=== PATIENT | male | born 1940 | race Caucasian/White ===

== ENCOUNTER 2017-12-04 16:06 | Outpatient (CLI) | payer MEDICARE, OTHER ==
[2017-12-04 18:37] LABS: THYROID STIMULATING HORMONE 5.93 uIU/mL (0.34-5.60)
[2017-12-04 18:39] LABS: FREE T4 (FREE THYROXINE) 0.64 ng/dL (0.58-1.64)
== END 2017-12-04 16:07 | disposition home or self-care (01) ==
LOC: LAB.R 16:06
PROVIDERS: ATTEND Physician Assistant Medical
DX: E03.9 Hypothyroidism, unspecified (principal)
CPT/HCPCS: 84439; 84443; 84481

== ENCOUNTER 2017-12-13 13:26 | Outpatient (CLI) | payer MEDICARE, OTHER ==
--- NOTE | 2017-12-14 10:24 | Ultrasound Report ---
THYROID ULTRASOUND: 12/13/2017 CLINICAL INDICATION: Hypothyroidism. TECHNIQUE: Real-time scanning was performed with service representative static images obtained. FINDINGS: The right lobe measures 2.8 x 1.6 x 1.1 cm, and the left lobe measures 2.5 x 1.3 x 1.1 cm. The isthmus measures 6 mm. The thyroid demonstrates homogeneous echotexture. No focal nodule is seen. No adenopathy is appreciated. IMPRESSION: NORMAL THYROID ULTRASOUND. TD: 12/14/2017 10:21
== END 2017-12-13 13:27 | disposition home or self-care (01) ==
LOC: DI 13:26
PROVIDERS: ATTEND Physician Assistant Medical
DX: E03.9 Hypothyroidism, unspecified (principal); R01.1 Cardiac murmur, unspecified
CPT/HCPCS: 76536; 93306

== ENCOUNTER 2018-05-31 10:24 | Outpatient (CLI) | payer MEDICARE, OTHER ==
--- NOTE | 2018-05-31 11:00 | XRAY Report ---
Reason: DYSPNEA ON EXERTION,AORTIC STENOSIS,CALCIFIC Procedure Date: 05/31/2018 Accession Number: [id number] / [id number] Procedure: XR - Chest 2 View X-Ray CPT Code: 16255 FULL RESULT: EXAM: CHEST RADIOGRAPHY EXAM DATE: 05/31/2018 10:45 AM. CLINICAL HISTORY: DYSPNEA ON EXERTION,AORTIC STENOSIS,CALCIFIC. COMPARISON: None. TECHNIQUE: 2 views. FINDINGS: Lungs/Pleura: No focal opacities evident. No pleural effusion. No pneumothorax. Normal volumes. Mediastinum: Status post sternotomy. Heart and mediastinal contours are otherwise unremarkable. Other: Mild degenerative change in the spine. IMPRESSION: Clear lungs. No acute findings. RADIA
[2018-05-31 11:39] LABS: BASOPHILS % (AUTO) 0.5 %; EOSINOPHILS # (AUTO) 0.2 10^3/uL (0.0-0.7); EOSINOPHILS % (AUTO) 2.6 %; HGB - HEMOGLOBIN 14.7 g/dL (14.0-18.0); LYMPHOCYTES # (AUTO) 1.1 10^3/uL (1.5-3.5); LYMPHOCYTES % (AUTO) 16.8 %; MEAN CORPUSCULAR HEMOGLOBIN 31.9 pg (27.0-31.0); MEAN CORPUSCULAR HGB CONC 36.2 g/dL (32.0-36.0); MEAN CORPUSCULAR VOLUME 88.1 fL (80.0-94.0); MEAN PLATELET VOLUME 7.8 fL (7.4-11.4); MONOCYTES # (AUTO) 0.6 10^3/uL (0.0-1.0); MONOCYTES % (AUTO) 9.4 %; NEUTROPHILS # (AUTO) 4.5 10^3/uL (1.5-6.6); NEUTROPHILS % (AUTO) 70.7 %; PLT - PLATELET COUNT 139 10^3/uL (130-450); RED CELL DISTRIBUTION WIDTH 13.4 % (12.0-15.0); WHITE BLOOD COUNT 6.4 x10^3/uL (4.8-10.8)
[2018-05-31 11:43] LABS: ALBUMIN 4.7 g/dL (3.2-5.5); ALBUMIN/GLOBULIN RATIO 1.7 (1.0-2.2); BILIRUBIN,TOTAL 1.1 mg/dL (0.2-1.0); CALCIUM 9.1 mg/dL (8.5-10.3); CREATININE 0.9 mg/dL (0.6-1.2); TOTAL PROTEIN 7.4 g/dL (6.7-8.2)
== END 2018-05-31 10:25 | disposition home or self-care (01) ==
LOC: DI 10:24
PROVIDERS: ATTEND Physician Assistant Medical
DX: R06.00 Dyspnea, unspecified (principal); I35.0 Nonrheumatic aortic (valve) stenosis
CPT/HCPCS: 36415; 71046; 80053; 84443; 85025

== ENCOUNTER 2018-06-20 08:00 | Outpatient (CLI) | payer MEDICARE, OTHER ==
[2018-06-20 14:34] LABS: CREATININE 0.8 mg/dL (0.6-1.2)
== END 2018-06-20 08:01 | disposition home or self-care (01) ==
LOC: LAB.R 08:00
PROVIDERS: ATTEND Nurse Practitioner
DX: I35.0 Nonrheumatic aortic (valve) stenosis (principal); Z79.899 Other long term (current) drug therapy
CPT/HCPCS: 82565

== ENCOUNTER 2018-07-19 11:58 | Outpatient (CLI) | payer MEDICARE, OTHER | END 2018-07-19 11:59 | disposition home or self-care (01) | LOC: LAB 11:58 | PROVIDERS: ATTEND Physician Assistant Medical | DX: E03.9 Hypothyroidism, unspecified (principal); Z79.899 Other long term (current) drug therapy | CPT/HCPCS: 36415; 84443 ==

== ENCOUNTER 2018-10-07 18:44 | Outpatient (CLI) | payer MEDICARE, OTHER | END 2018-10-07 18:45 | disposition critical access hospital (66) | LOC: EMS 18:44 | PROVIDERS: ATTEND Surgery | DX: R07.9 Chest pain, unspecified (principal); R42 Dizziness and giddiness | CPT/HCPCS: A0425; A0427 ==

== ENCOUNTER 2018-10-07 18:48 | Emergency (ER) | payer MEDICARE, OTHER ==
--- NOTE | 2018-10-07 19:17 | ED Physician Documentation ---
PD HPI CHEST PAIN - Stated complaint Stated Complaint: CHEST PAIN - Chief complaint Chief Complaint: Cardiac - History obtained from History obtained from: Patient, EMS - History of Present Illness Timing - onset: Today (About 6:15, while sitting developed dull severe left anterior chest pain. He felt out of sorts with it and dizzy and slightly nauseous. He was not sweaty or short of breath with it. He took a nitroglycerin and it resolved. Total time that he was in pain was about 5 minutes. 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 denies: Palpitations Respiratory: denies: Dyspnea, Cough GI: reports: Nausea. denies: Abdominal Pain, Vomiting PD PAST MEDICAL HISTORY - Past Medical History Cardiovascular: Hypertension, Coronary artery disease, Angina, [place], Valve disorder - Past Surgical History Past Surgical History: Yes Cardiovascular: CABG, Valve replacement - Present Medications Home Medications: Ambulatory Orders Medication Instructions Recorded Confirmed Aspirin [Aspirin EC] 81 mg PO DAILY 10/07/18 10/07/18 Atorvastatin Calcium 40 mg PO DAILY 10/07/18 10/07/18 Levothyroxine Sodium [Synthroid] 25 mcg PO DAILY 10/07/18 10/07/18 Lisinopril 2.5 mg PO DAILY 10/07/18 10/07/18 Metoprolol Tartrate [Lopressor] 50 mg PO DAILY 10/07/18 10/07/18 Nitroglycerin [Nitrostat] 0.4 mg PO Q5MIN PRN 10/07/18 10/07/18 - Allergies Allergies/Adverse Reactions: Allergies Allergy/AdvReac Type Severity Reaction Status Date / Time No Known Drug Allergies Allergy Verified 10/07/18 19:01 - Social History Does the pt smoke?: No Smoking Status: Never smoker Does the pt drink ETOH?: No Does the pt have substance abuse?: No PD ED PE NORMAL - Vitals Vital signs reviewed: Yes - General General: Alert and oriented X 3, No acute distress - HEENT HEENT: PERRL, EOMI - Neck Neck: Supple, no meningeal sign, No bony TTP - Cardiac Cardiac: RRR, Other (2 out of 6 systolic decrescendo murmur heard best at the left upper sternal border) - Respiratory Respiratory: No respiratory distress, Clear bilaterally - Abdomen Abdomen: Soft, Non tender - Derm Derm: Normal color, Warm and dry - Extremities Extremities: No edema, No calf tenderness / cord - Neuro Neuro: Alert and oriented X 3, Normal speech - Psych Psych: Normal mood, Normal affect Results - Vitals Vitals: Vital Signs - 24 hr 10/07/18 10/07/18 10/07/18 18:49 18:57 20:07 Temperature 36.5 C Heart Rate 69 61 60 Respiratory 18 14 17 Rate Blood Pressure 135/62 H 135/61 H 106/53 L O2 Saturation 99 96 97 Oxygen O2 Source Room air - EKG (time done) 1851 Rate: Rate (enter#) (62) Rhythm: NSR [place]: Normal Intervals: Normal GA QRS: LVH Ischemia: Non specific changes (He almost has a Wellens phenomenon in V2 and V3 with slightly biphasic T waves but mostly upright in those leads.) Compare to prior EKG: Old EKG unavailable Computer interpretation: Agree with computer - Labs Labs: Laboratory Tests 10/07/18 10/07/18 10/07/18 19:22 19:22 19:22 WBC 5.3 RBC 4.25 L Hgb 13.4 L Hct 36.6 L MCV 86.2 MCH 31.5 H MCHC 36.5 H RDW 13.5 Plt Count 111 L MPV 7.9 Neut # (Auto) 3.1 Lymph # (Auto) 1.4 L Terrell # (Auto) 0.6 Eos # (Auto) 0.1 Baso # (Auto) 0.0 Absolute Nucleated RBC 0.00 Nucleated RBC % 0.0 PT 12.8 H INR 1.1 Sodium 134 L Potassium 3.7 Chloride 99 L Carbon Dioxide 29 Anion Gap 6.0 BUN 15 Creatinine 0.9 Estimated GFR (MDRD) 81 L Glucose 181 H Calcium 8.6 Total Bilirubin 0.6 AST 27 ALT 28 Alkaline Phosphatase 71 Total Creatine Kinase 62 CK-MB (CK-2) Troponin I Total Protein 6.5 L Albumin 4.2 Globulin 2.3 Albumin/Globulin Ratio 1.8 Lipase 37 10/07/18 10/07/18 19:22 21:00 WBC RBC Hgb Hct MCV MCH MCHC RDW Plt Count MPV Neut # (Auto) Lymph # (Auto) Terrell # (Auto) Eos # (Auto) Baso # (Auto) Absolute Nucleated RBC Nucleated RBC % PT INR Sodium Potassium Chloride Carbon Dioxide Anion Gap BUN Creatinine Estimated GFR (MDRD) Glucose Calcium Total Bilirubin AST ALT Alkaline Phosphatase Total Creatine Kinase CK-MB (CK-2) 2.5 Troponin I < 0.04 < 0.04 Total Protein Albumin Globulin Albumin/Globulin Ratio Lipase PD MEDICAL DECISION MAKING - ED course ED course: This is an 78-year-old gentleman with 5 minutes of rest pain earlier today. His EKG is without truly ischemic changes and his biomarkers are negative. Case discussed with the on-call or assistant at the [facility], [place], operated by [facility]. He reviewed his chart, prior to his TAVR he had a clean angiogram. As such he recommends a second troponin and then discharge and outpatient follow-up. Departure - Departure Disposition: 01 Home, Self Care Clinical Impression: Chest pain Qualifiers: Chest pain type: unspecified Qualified Code(s): R07.9 - Chest pain, unspecified Condition: Good Record reviewed to determine appropriate education?: Yes Instructions: ED Chest Pain NonCardiac Comments: Call your or assistant tomorrow to arrange follow-up. I would not do cardiac rehab until he clears you to do so. Return if you develop any other chest pain or comes back.
[2018-10-07 19:32] LABS: BASOPHILS % (AUTO) 0.5 %; EOSINOPHILS # (AUTO) 0.1 10^3/uL (0.0-0.7); EOSINOPHILS % (AUTO) 1.9 %; HGB - HEMOGLOBIN 13.4 g/dL (14.0-18.0); LYMPHOCYTES # (AUTO) 1.4 10^3/uL (1.5-3.5); LYMPHOCYTES % (AUTO) 27.1 %; MEAN CORPUSCULAR HEMOGLOBIN 31.5 pg (27.0-31.0); MEAN CORPUSCULAR HGB CONC 36.5 g/dL (32.0-36.0); MEAN CORPUSCULAR VOLUME 86.2 fL (80.0-94.0); MEAN PLATELET VOLUME 7.9 fL (7.4-11.4); MONOCYTES # (AUTO) 0.6 10^3/uL (0.0-1.0); MONOCYTES % (AUTO) 11.5 %; NEUTROPHILS # (AUTO) 3.1 10^3/uL (1.5-6.6); PLT - PLATELET COUNT 111 10^3/uL (130-450); RED BLOOD COUNT 4.25 10^6/uL (4.70-6.10); RED CELL DISTRIBUTION WIDTH 13.5 % (12.0-15.0); WHITE BLOOD COUNT 5.3 x10^3/uL (4.8-10.8)
[2018-10-07 19:44] LABS: ALBUMIN 4.2 g/dL (3.2-5.5); ALBUMIN/GLOBULIN RATIO 1.8 (1.0-2.2); BILIRUBIN,TOTAL 0.6 mg/dL (0.2-1.0); CALCIUM 8.6 mg/dL (8.5-10.3); CREATININE 0.9 mg/dL (0.6-1.2); TOTAL PROTEIN 6.5 g/dL (6.7-8.2)
[2018-10-07 19:50] LABS: TROPONIN I < 0.04 ng/mL (<0.49)
[2018-10-07 19:51] LABS: INR 1.1 (0.8-1.2); PT - PROTHROMBIN TIME 12.8 secs (9.9-12.6)
[2018-10-07 19:52] LABS: CREATINE KINASE MB 2.5 ng/mL (0.6-6.3)
--- NOTE | 2018-10-07 20:07 | XRAY Report ---
Reason: chest pain Procedure Date: 10/07/2018 Accession Number: [id number] / [id number] Procedure: XR - Chest 1 View X-Ray CPT Code: 38265 FULL RESULT: EXAM: CHEST RADIOGRAPHY. EXAM DATE: 10/07/2018 07:42 PM. CLINICAL HISTORY: Chest pain. COMPARISON: CHEST 2 VIEW 05/31/2018 10:37 AM. TECHNIQUE: 1 view. FINDINGS: Lungs/Pleura: No focal opacities evident. No pleural effusion. No pneumothorax. Mediastinum: Previous cardiac surgery with median sternal wires and artificial valve. Other: None. IMPRESSION: 1. Lungs clear. 2. Prior cardiac surgery and valve replacement. RADIA
[2018-10-07 21:35] VITALS: BP 111/82
== END 2018-10-07 21:37 | disposition home or self-care (01) ==
LOC: EDUNIT# → ED 18:48
DX: R07.9 Chest pain, unspecified (principal); I25.2 Old myocardial infarction; I25.10 Atherosclerotic heart disease of native coronary artery without angina pectoris; I10 Essential (primary) hypertension; R94.31 Abnormal electrocardiogram [ECG] [EKG]; Z95.1 Presence of aortocoronary bypass graft; Z95.2 Presence of prosthetic heart valve; Z79.82 Long term (current) use of aspirin
CPT/HCPCS: 36415; 71045; 80053; 82550; 82553; 83690; 84484; 85025; 85610; 93005; 99283

== ENCOUNTER 2019-07-30 14:36 | Outpatient (CLI) | payer MEDICARE, OTHER | END 2019-07-30 14:37 | disposition home or self-care (01) | LOC: DI 14:36 | PROVIDERS: ATTEND Internal Medicine Cardiovascular Disease | DX: I50.9 Heart failure, unspecified (principal); Z95.2 Presence of prosthetic heart valve | CPT/HCPCS: 93306 ==

== ENCOUNTER 2019-07-30 15:47 | Outpatient (CLI) | payer MEDICARE, OTHER | END 2019-07-30 15:48 | disposition home or self-care (01) | LOC: RT 15:47 | PROVIDERS: ATTEND Internal Medicine Cardiovascular Disease | DX: I25.10 Atherosclerotic heart disease of native coronary artery without angina pectoris (principal); Z95.2 Presence of prosthetic heart valve | CPT/HCPCS: 93005; 93306 ==

== ENCOUNTER 2020-03-17 09:53 | Outpatient (CLI) | payer MEDICARE, OTHER ==
[2020-03-17 11:40] LABS: BASOPHILS % (AUTO) 0.6 %; EOSINOPHILS # (AUTO) 0.1 10^3/uL (0.0-0.7); EOSINOPHILS % (AUTO) 1.8 %; HGB - HEMOGLOBIN 14.5 g/dL (14.0-18.0); LYMPHOCYTES # (AUTO) 1.9 10^3/uL (1.5-3.5); LYMPHOCYTES % (AUTO) 30.9 %; MEAN CORPUSCULAR HGB CONC 35.3 g/dL (32.0-36.0); MEAN CORPUSCULAR VOLUME 87.8 fL (80.0-94.0); MEAN PLATELET VOLUME 9.8 fL (7.4-11.4); MONOCYTES # (AUTO) 0.7 10^3/uL (0.0-1.0); MONOCYTES % (AUTO) 10.8 %; NEUTROPHILS # (AUTO) 3.5 10^3/uL (1.5-6.6); NEUTROPHILS % (AUTO) 55.6 %; PLT - PLATELET COUNT 121 10^3/uL (130-450); RED BLOOD COUNT 4.68 10^6/uL (4.70-6.10); RED CELL DISTRIBUTION WIDTH 11.8 % (12.0-15.0); WHITE BLOOD COUNT 6.2 x10^3/uL (4.8-10.8)
[2020-03-17 12:08] LABS: ALBUMIN 4.6 g/dL (3.2-5.5); ALBUMIN/GLOBULIN RATIO 1.6 (1.0-2.2); ALKALINE PHOSPHATASE 61 IU/L (42-121); ALT ALANINE AMINOTRANSFERASE 30 IU/L (10-60); AST ASPARTATE AMINOTRANSFERASE 23 IU/L (10-42); BUN - BLOOD UREA NITROGEN 15 mg/dL (6-20); CALCIUM 9.2 mg/dL (8.5-10.3); CARBON DIOXIDE - CO2 30 mmol/L (21-32); CHLORIDE 101 mmol/L (101-111); CHOL/HDL RATIO 3.8 (<5.0); CHOLESTEROL 134 mg/dL; CREATININE 0.9 mg/dL (0.6-1.2); GLUCOSE 147 mg/dL (70-100); HDL CHOLESTEROL 35 mg/dL; LDL CHOLESTEROL,CALCULATED 60 mg/dL; LDL/HDL RATIO 1.7 (<3.6); SODIUM 138 mmol/L (135-145); TOTAL PROTEIN 7.5 g/dL (6.7-8.2); VLDL CHOLESTEROL 39 mg/dL
[2020-03-17 12:28] LABS: CREATININE,URINE 177.5 mg/dL; MICROALBUM/CREATININE RATIO,UR 6.2 ug/mg (<30.0); MICROALBUMIN,URINE 1.1 mg/dL (0-300.0)
[2020-03-17 12:50] LABS: FREE T4 (FREE THYROXINE) 0.67 ng/dL (0.58-1.64)
[2020-03-17 13:56] LABS: HEMOGLOBIN A1c% 6.9 % (4.27-6.07)
== END 2020-03-17 23:59 | disposition home or self-care (01) ==
LOC: LAB.WCP 09:53
PROVIDERS: ATTEND Family Medicine
DX: E11.9 Type 2 diabetes mellitus without complications (principal); I25.10 Atherosclerotic heart disease of native coronary artery without angina pectoris; E78.2 Mixed hyperlipidemia; E03.9 Hypothyroidism, unspecified; E66.3 Overweight
CPT/HCPCS: 36415; 80053; 80061; 82043; 82570; 83036; 83721; 84439; 84443; 85025

== ENCOUNTER 2020-08-06 12:03 | Outpatient (CLI) | payer MEDICARE, OTHER | END 2020-08-06 12:04 | disposition home or self-care (01) | LOC: LAB 12:03 | PROVIDERS: ATTEND Family Medicine | DX: I10 Essential (primary) hypertension (principal); R73.9 Hyperglycemia, unspecified; D69.6 Thrombocytopenia, unspecified; E78.2 Mixed hyperlipidemia | CPT/HCPCS: 36415; 83036; 84443 ==

== ENCOUNTER 2020-12-05 11:22 | Outpatient (CLI) | payer MEDICARE, OTHER | END 2020-12-05 11:23 | disposition critical access hospital (66) | LOC: EMS 11:22 | DX: M79.602 Pain in left arm (principal); M25.512 Pain in left shoulder; M54.6 Pain in thoracic spine | CPT/HCPCS: A0425; A0429 ==

== ENCOUNTER 2020-12-05 12:00 | Emergency (ER) | payer MEDICARE, OTHER ==
[2020-12-05] MEDS ORDERED: HYDROmorphone 1 MG/ML CARPUJECT IVP STA ×2 (12:36→14:21)
[2020-12-05] MEDS ORDERED: KETOROLAC 30 MG/ML VIAL IVP STA (12:36)
[2020-12-05] MEDS ORDERED: SODIUM CHLORIDE 0.9% 1,000 ML IV STA (12:36)
--- NOTE | 2020-12-05 12:38 | ED Physician Documentation ---
PD HPI BACK PAIN - Stated complaint Stated Complaint: L SHOULDER PX - Chief complaint Chief Complaint: General - History obtained from History obtained from: Patient - History of Present Illness Timing - onset: How many hours ago (1), Today Timing - duration: Hours (1) Timing - details: Abrupt onset, Still present Location: Upper, Left Quality: Pain, Sharp Associated symptoms: No: Fever, Weakness, Numbness Contributing factors: Twisting (Patient states he turned his upper back and noted an onset abruptly of sharp left scapular to thoracic area pain rating to the left shoulder. It hurts with shoulder movement and turning of the upper back. Does not hurt with breathing. No lightheadedness.) Similar symptoms before: Has not had sx before Recently seen: No: Surgery (Had TAVR 3 years ago. No history of aortic problems.) Review of Systems Constitutional: denies: Fever, Chills, Myalgias Nose: denies: Rhinorrhea / runny nose, Congestion Throat: denies: Sore throat Cardiac: denies: Chest pain / pressure, Palpitations Respiratory: denies: Cough GI: denies: Abdominal Pain, Nausea, Vomiting, Diarrhea Skin: denies: Rash, Lesions Neurologic: denies: Focal weakness, Numbness, Altered mental status, Headache Endocrine: denies: Weight loss PD PAST MEDICAL HISTORY - Past Medical History Cardiovascular: Hypertension, Coronary artery disease, Angina, [place], Valve disorder, Other (no history of aortic aneurysms. ) Respiratory: None Neuro: None Endocrine/Autoimmune: None - Past Surgical History Past Surgical History: Yes Cardiovascular: CABG, Valve replacement - Present Medications Home Medications: Ambulatory Orders Medication Instructions Recorded Confirmed Aspirin [Aspirin EC] 81 mg PO DAILY 10/07/18 12/05/20 Atorvastatin Calcium 40 mg PO DAILY 10/07/18 12/05/20 Levothyroxine Sodium [Synthroid] 25 mcg PO DAILY 10/07/18 12/05/20 Metoprolol Tartrate [Lopressor] 50 mg PO DAILY 10/07/18 12/05/20 Nitroglycerin [Nitrostat] 0.4 mg PO Q5MIN PRN 10/07/18 12/05/20 lisinopriL [Lisinopril] 2.5 mg PO DAILY 10/07/18 12/05/20 Naproxen Sodium 275 mg PO BID #15 tablet 12/05/20 Ondansetron Odt [Zofran] 4 mg TL Q6H PRN #10 tablet 12/05/20 oxyCODONE [Roxicodone] 5 mg PO Q4-6H PRN #12 tablet 12/05/20 tiZANidine [Zanaflex] 4 mg PO Q8H PRN #20 tablet 12/05/20 - Allergies Allergies/Adverse Reactions: Allergies Allergy/AdvReac Type Severity Reaction Status Date / Time No Known Drug Allergies Allergy Verified 12/05/20 12:08 - Living Situation Living Situation: reports: With spouse/s.o. Living Arrangement: reports: At home - Social History Does the pt smoke?: No Smoking Status: Never smoker Does the pt drink ETOH?: No Does the pt have substance abuse?: No PD ED PE NORMAL - Vitals Vital signs reviewed: Yes - General General: Alert and oriented X 3, Well developed/nourished, Other (appears in pain, increased with movement left shoulder/shoulder girdle, and with movement upper back/lower neck. No chest pain. ) - HEENT HEENT: Pharynx benign - Neck Neck: Supple, no meningeal sign, No adenopathy - Cardiac Cardiac: RRR, Other (1/6 murmur left chest to neck c/w aortic valve stenosis/mild. ) - Respiratory Respiratory: Clear bilaterally - Abdomen Abdomen: Normal bowel sounds, Soft, Non tender, Non distended, No organomegaly - Back Back: No CVA TTP, Other (tender left scapular area and in spine at lower cervical/upper thoracic area. No deformity. No redness/warmth/rash. Also tender suprascapular and posterior left shoulder. Shoulder itself is normal feeling. ) - Derm Derm: Normal color, Warm and dry, No rash - Extremities Extremities: No tenderness to palpate, Normal ROM s pain, No edema, No calf tenderness / cord - Neuro Neuro: Alert and oriented X 3, No motor deficit, No sensory deficit Eye Opening: Spontaneous Motor: Obeys Commands Verbal: Oriented GCS Score: 15 Results - Vitals Vitals: Vital Signs - 24 hr 12/05/20 12/05/20 12/05/20 12:08 12:47 13:37 Temperature 36.9 C Heart Rate 70 78 68 Respiratory 25 H 19 14 Rate Blood Pressure 187/76 H 152/92 H 142/67 H O2 Saturation 100 97 97 12/05/20 12/05/20 12/05/20 14:00 14:40 14:42 Temperature Heart Rate 67 74 Respiratory 15 13 Rate Blood Pressure 155/63 H 171/144 H 149/64 H O2 Saturation 97 96 12/05/20 12/05/20 12/05/20 15:21 15:30 15:58 Temperature Heart Rate 83 77 75 Respiratory 17 19 16 Rate Blood Pressure 158/101 H 141/71 H 129/63 O2 Saturation 93 96 94 12/05/20 12/05/20 12/05/20 16:11 16:30 16:33 Temperature Heart Rate 78 72 71 Respiratory 16 16 16 Rate Blood Pressure 142/60 H 126/55 L 126/55 L O2 Saturation 97 96 99 Oxygen O2 Source Room air - Labs Labs: Laboratory Tests 12/05/20 12/05/20 12:51 12:51 WBC 7.1 RBC 4.69 L Hgb 14.7 Hct 40.3 L MCV 85.9 MCH 31.3 H MCHC 36.5 H RDW 11.5 L Plt Count 129 L MPV 9.8 Neut # (Auto) 5.5 Lymph # (Auto) 1.0 L [place] # (Auto) 0.5 Eos # (Auto) 0.0 Baso # (Auto) 0.0 Absolute Nucleated RBC 0.00 Nucleated RBC % 0.0 Sodium 134 L Potassium 3.9 Chloride 98 L Carbon Dioxide 23 Anion Gap 13.0 BUN 12 Creatinine 0.8 Estimated GFR (MDRD) 93 Glucose 199 H Calcium 9.0 Total Bilirubin 0.9 AST 28 ALT 37 Alkaline Phosphatase 64 C-Reactive Protein < 1.0 Total Protein 7.1 Albumin 4.5 Globulin 2.6 Albumin/Globulin Ratio 1.7 Lipase 26 - Rads (name of study) CT cervical/thoracic spine Radiology: Prelim report reviewed (no fractures. multi level spondolysis. ), See rad report left shoulder Radiology: Prelim report reviewed (no acute process), See rad report PD MEDICAL DECISION MAKING - ED course Complexity details: reviewed results (CT cervical and throacic without acute process. Presume muscular though pinched nerve possible. Abrupt onset, but is tender to touch and movement, but less likely shingles. ), re-evaluated patient (patient was doing reasonably better with IV meds. Could be somewhat better with more meds. Gave another dose of Dilaudid and he got nauseated and pale. Vitals good and FSBS 176. Presume side effect med. Given Zofran and fluids and imp roved, moderately. Inapsine felt much better. ), considered differential, d/w patient Departure - Departure Disposition: 01 Home, Self Care Clinical Impression: Muscle strain of scapular region Qualifiers: Encounter type: initial encounter Laterality: left Qualified Code(s): S46.912A - Strain of unspecified muscle, fascia and tendon at shoulder and upper arm level, left arm, initial encounter Acute thoracic back pain Qualifiers: Back pain laterality: left Qualified Code(s): M54.6 - Pain in thoracic spine Condition: Stable Record reviewed to determine appropriate education?: Yes Instructions: ED Sprain Thoracic Spine Follow-Up: Erick Ross MD [Primary Care Provider] - Prescriptions: Naproxen Sodium 275 mg PO BID #15 tablet oxyCODONE [Roxicodone] 5 mg PO Q4-6H PRN #12 tablet PRN Reason: Pain tiZANidine [Zanaflex] 4 mg PO Q8H PRN #20 tablet PRN Reason: Spasms Ondansetron Odt [Zofran] 4 mg TL Q6H PRN #10 tablet PRN Reason: Nausea / Vomiting Comments: I presume its a muscle strain in the scapular area or possibly a pinched nerve from the upper back causing the abrupt pain. CT scan of your neck and thoracic area do not show any acute fractures or compressive deformities. At this point we will treat it with anti-inflammatories and muscle relaxants and pain medicine. Use the naproxen twice daily with food. Add tizanidine muscle relaxant 3-4 times a day for spasms and stiffness. To that add Tylenol 650 mg 4 times a day. Add oxycodone every 4-6 hours if needed for worse pain. Zofran for nausea if needed. Heat and stretching for the area. You could use a sling for the left shoulder to reduce motion there, as shoulder and scapular movement do seem to hurt more. Recheck if not improved well over the next 2 to 3 days and return if pain uncontrolled by oral medicines, new symptoms such as rash fever cough trouble breathing etc. Otherwise if improving well then just follow-up with your primary care as planned. Discharge Date/Time: 12/05/20 16:47
[2020-12-05 12:59] LABS: BASOPHILS % (AUTO) 0.3 %; EOSINOPHILS % (AUTO) 0.4 %; HCT - HEMATOCRIT 40.3 % (42.0-52.0); HGB - HEMOGLOBIN 14.7 g/dL (14.0-18.0); MEAN CORPUSCULAR HEMOGLOBIN 31.3 pg (27.0-31.0); MEAN CORPUSCULAR HGB CONC 36.5 g/dL (32.0-36.0); MEAN CORPUSCULAR VOLUME 85.9 fL (80.0-94.0); MEAN PLATELET VOLUME 9.8 fL (7.4-11.4); MONOCYTES # (AUTO) 0.5 10^3/uL (0.0-1.0); MONOCYTES % (AUTO) 7.4 %; NEUTROPHILS # (AUTO) 5.5 10^3/uL (1.5-6.6); NEUTROPHILS % (AUTO) 77.6 %; PLT - PLATELET COUNT 129 10^3/uL (130-450); RED BLOOD COUNT 4.69 10^6/uL (4.70-6.10); RED CELL DISTRIBUTION WIDTH 11.5 % (12.0-15.0); WHITE BLOOD COUNT 7.1 x10^3/uL (4.8-10.8)
[2020-12-05 13:18] LABS: ALBUMIN 4.5 g/dL (3.2-5.5); ALBUMIN/GLOBULIN RATIO 1.7 (1.0-2.2); ALKALINE PHOSPHATASE 64 IU/L (42-121); ALT ALANINE AMINOTRANSFERASE 37 IU/L (10-60); AST ASPARTATE AMINOTRANSFERASE 28 IU/L (10-42); BILIRUBIN,TOTAL 0.9 mg/dL (0.2-1.0); BUN - BLOOD UREA NITROGEN 12 mg/dL (6-20); CARBON DIOXIDE - CO2 23 mmol/L (21-32); CHLORIDE 98 mmol/L (101-111); CREATININE 0.8 mg/dL (0.6-1.2); GFR - MDRD 93 (>89); GLUCOSE 199 mg/dL (70-100); LIPASE 26 U/L (22-51); POTASSIUM 3.9 mmol/L (3.5-5.0); SODIUM 134 mmol/L (135-145); TOTAL PROTEIN 7.1 g/dL (6.7-8.2)
[2020-12-05 13:21] LABS: CRP - C-REACTIVE PROTEIN < 1.0 mg/dL (0-1.0)
--- NOTE | 2020-12-05 13:23 | XRAY Report ---
PROCEDURE: Shoulder 3 View LT INDICATIONS: abrupt left posterior shoulder pain TECHNIQUE: 3 views of the shoulder were acquired. COMPARISON: None. FINDINGS: Bones: Examination is somewhat limited given patient's inability to appropriately position. There are mild degenerative changes of the acromioclavicular joint and moderate degenerative changes of the gl enohumeral joint. Small amount of calcification noted along the greater tuberosity which may represen t hydroxyapatite deposition in the setting of calcific tendinitis. No fracture or evidence of disloca tion. Soft tissues: Imaged lungs are clear. Findings suggestive of aortic valve replacement and CABG. IMPRESSION: No evidence of an acute osseous abnormality. Mild acromioclavicular moderate, humeral joint degenerative changes. Small amount of calcification adjacent to the greater tuberosity which may represent hydroxyapatite d eposition in the setting of calcific tendinitis. Reviewed by: Justen Murguia DO on 12/05/2020 12:21 PM ROSEANN Approved by: Justen Murguia DO on 12/05/2020 12:21 PM ROSEANN Station ID: [id number]
--- NOTE | 2020-12-05 13:28 | CT Report ---
PROCEDURE: CERVICAL SPINE WO INDICATIONS: abrupt neck pain TECHNIQUE: Noncontrast 3 mm thick sections acquired from the skull base to the T4 level. Sagittal and coronal r eformats were then constructed. For radiation dose reduction, the following was used: automated exp osure control, adjustment of mA and/or kV according to patient size. COMPARISON: None. FINDINGS: Image quality: Excellent. Bones: There is no acute fracture or traumatic malalignment. Vertebral body heights are maintained. T here are multilevel cervical spinal degenerative changes. There is partial ankylosis of C2-C3 includi ng the left facets. There is moderate intervertebral disc space loss at C3-C4 and C6-C7 with near com plete disc space loss at C2-C3 C5-C6, and C7-T1. There is diffuse endplate degenerative changes, unco vertebral joint hypertrophy, and facet arthropathy. There is at least mild spinal canal stenosis post erior to C3-C4, C4-C5, C5-C6, C6-C7, and C7-T1. There is diffuse bony neural foraminal stenosis which is mild to moderate throughout the spine and severe at the left C4-C5. Soft tissues: Prevertebral soft tissues are normal in thickness. No paravertebral hematomas. No ap ical pneumothoraces. Mild cervical carotid vascular calcifications. IMPRESSION: No acute osseous abnormality. Multilevel cervical spondylopathy as described above with multiple levels of mild spinal canal stenos is. Multiple levels of neural foraminal stenosis which is worse on the left and marked at C4-C5. Reviewed by: Justen Murguia DO on 12/05/2020 12:26 PM ROSEANN Approved by: Justen Murguia DO on 12/05/2020 12:26 PM ROSEANN Station ID: [id number]
--- NOTE | 2020-12-05 13:33 | CT Report ---
PROCEDURE: THORACIC SPINE WO INDICATIONS: abrupt cervicothoracic back pain TECHNIQUE: Noncontrast 3 mm thick sections acquired through the region of interest in the thoracic spine. Sagit won and coronal reformats were then constructed. For radiation dose reduction, the following was used : automated exposure control, adjustment of mA and/or kV according to patient size. COMPARISON: None. FINDINGS: Image quality: Excellent. Bones: There is normal overall bony alignment. No acute vertebral body compression fractures. No s uspicious sclerotic or lytic bony lesions. No significant central spinal canal stenosis. There is end plate degenerative changes and facet arthropathy which results in multiple levels of mild to moderate neural foraminal stenosis. Soft tissues: No paravertebral masses or hematomas. Visualized posteromedial lungs appear clear. T here are nodular densities within the proximal mainstem bronchi. Aortic valve replacement incompletel y evaluated. There are diffuse calcifications throughout the aorta and proximal branch vessels. IMPRESSION: Mild multilevel thoracic spondylosis without significant spinal canal stenosis. Multiple levels of mi ld to moderate neural foraminal stenosis. No acute osseous abnormality. Nodular densities within the proximal mainstem bronchi bilaterally may represent inspissated secretio ns versus true nodule, consider direct visualization versus short-term follow-up CT in approximately one month. Reviewed by: Justen Murguia DO on 12/05/2020 12:32 PM ROSEANN Approved by: Justen Murguia DO on 12/05/2020 12:32 PM ROSEANN Station ID: [id number]
[2020-12-05] MEDS ORDERED: DEXAMETHASONE 10 MG/ML VIAL IVP STA (14:23)
[2020-12-05] MEDS ORDERED: ONDANSETRON 4 MG/2 ML VIAL IVP STA (15:08)
[2020-12-05] MEDS ORDERED: DROPERIDOL 5 MG/2 ML VIAL IVP STA (15:53)
[2020-12-05] MEDS ORDERED: ACETAMINOPHEN 325 MG TABLET PO STA (15:56)
[2020-12-05 16:34] VITALS: BP 126/55
== END 2020-12-05 16:47 | disposition home or self-care (01) ==
LOC: EDUNIT# → ED 12:00
DX: S46.912A Strain of unspecified muscle, fascia and tendon at shoulder and upper arm level, left arm, initial encounter (principal); X50.1XXA Overexertion from prolonged static or awkward postures, initial encounter; M54.6 Pain in thoracic spine; Z95.1 Presence of aortocoronary bypass graft; Z95.2 Presence of prosthetic heart valve
CPT/HCPCS: 36415; 72125; 72128; 73030; 80053; 83690; 85025; 86140; 96374; 96375; 96376; 99284; 99285; A9270; J1170

== ENCOUNTER 2020-12-07 17:42 | Emergency (ER) | payer MEDICARE, OTHER ==
[2020-12-07] MEDS ORDERED: SODIUM CHLORIDE 0.9% 1,000 ML IV STA ×2 (18:16→19:45)
[2020-12-07] MEDS ORDERED: KETOROLAC 30 MG/ML VIAL IVP STA (18:16)
[2020-12-07] MEDS ORDERED: diazePAM INJ 5 MG/ML SYRINGE IVP STA (18:16)
[2020-12-07] MEDS ORDERED: IOPAMIDOL-300 100 ML VIAL ONE (18:21)
[2020-12-07 18:47] LABS: BASOPHILS % (AUTO) 0.5 %; EOSINOPHILS # (AUTO) 0.1 10^3/uL (0.0-0.7); EOSINOPHILS % (AUTO) 1.1 %; HCT - HEMATOCRIT 38.5 % (42.0-52.0); LYMPHOCYTES # (AUTO) 1.2 10^3/uL (1.5-3.5); LYMPHOCYTES % (AUTO) 19.3 %; MEAN CORPUSCULAR HEMOGLOBIN 31.7 pg (27.0-31.0); MEAN CORPUSCULAR HGB CONC 36.4 g/dL (32.0-36.0); MEAN CORPUSCULAR VOLUME 87.1 fL (80.0-94.0); MEAN PLATELET VOLUME 9.8 fL (7.4-11.4); MONOCYTES # (AUTO) 0.7 10^3/uL (0.0-1.0); MONOCYTES % (AUTO) 10.9 %; NEUTROPHILS # (AUTO) 4.3 10^3/uL (1.5-6.6); NEUTROPHILS % (AUTO) 67.9 %; PLT - PLATELET COUNT 124 10^3/uL (130-450); RED BLOOD COUNT 4.42 10^6/uL (4.70-6.10); RED CELL DISTRIBUTION WIDTH 11.6 % (12.0-15.0); WHITE BLOOD COUNT 6.3 x10^3/uL (4.8-10.8)
[2020-12-07 18:54] LABS: ALBUMIN 4.4 g/dL (3.2-5.5); ALBUMIN/GLOBULIN RATIO 1.8 (1.0-2.2); BILIRUBIN,TOTAL 0.7 mg/dL (0.2-1.0); CALCIUM 8.8 mg/dL (8.5-10.3); TOTAL PROTEIN 6.9 g/dL (6.7-8.2)
--- NOTE | 2020-12-07 18:55 | ED Physician Documentation ---
History of Present Illness - Stated complaint Stated Complaint: shoulder px - Chief complaint Chief Complaint: Ext Problem - History obtained from History obtained from: Patient, Family - History of Present Illness Timing: How many days ago (3) Pain level max: 10 Pain level now: 10 - Additonal information Additional information: 80-year-old male presents to emergency department complaining of neck pain and upper back pain, radiates to both of his shoulders and down his arms. Feels better when his shoulders are kept up by his ears. Worse with movement, better with rest. He states he has been taking the medications were prescribed 2 days ago, but continues to have intermittent spasm and pain. Does not recall any injury. No fevers. No chills. No lifting. No twisting. No shortness of breath. No nausea or vomiting. Review of Systems Ten Systems: 10 systems reviewed and negative Constitutional: denies: Fever, Chills Ears: denies: Ear pain Nose: denies: Rhinorrhea / runny nose, Congestion Respiratory: denies: Cough GI: denies: Abdominal Pain, Nausea, Vomiting, Constipation, Diarrhea Skin: denies: Rash Neurologic: denies: Focal weakness, Numbness, Confused, Headache PD PAST MEDICAL HISTORY - Past Medical History Past Medical History: Yes Cardiovascular: Hypertension, Coronary artery disease, Angina, PA, Valve disorder, Other Respiratory: None Neuro: None Endocrine/Autoimmune: None GI: None : None Psych: None Musculoskeletal: None Derm: None - Past Surgical History Past Surgical History: Yes Cardiovascular: CABG, Valve replacement - Present Medications Home Medications: Ambulatory Orders Medication Instructions Recorded Confirmed Aspirin [Aspirin EC] 81 mg PO DAILY 10/07/18 12/07/20 Atorvastatin Calcium 40 mg PO DAILY 10/07/18 12/07/20 Levothyroxine Sodium [Synthroid] 25 mcg PO DAILY 10/07/18 12/07/20 Metoprolol Tartrate [Lopressor] 50 mg PO DAILY 10/07/18 12/07/20 Nitroglycerin [Nitrostat] 0.4 mg PO Q5MIN PRN 10/07/18 12/07/20 lisinopriL [Lisinopril] 2.5 mg PO DAILY 10/07/18 12/07/20 Naproxen Sodium 275 mg PO BID #15 tablet 12/05/20 Ondansetron Odt [Zofran] 4 mg TL Q6H PRN #10 tablet 12/05/20 12/07/20 oxyCODONE [Roxicodone] 5 mg PO Q4-6H PRN #12 tablet 12/05/20 12/07/20 tiZANidine [Zanaflex] 4 mg PO Q8H PRN #20 tablet 12/05/20 12/07/20 Oxycodone HCl/Acetaminophen 1 - 2 each PO Q6H PRN #14 tablet 12/07/20 [Percocet 5-325 mg Tablet] diazePAM [Valium] 5 - 10 mg PO TID PRN #15 tablet 12/07/20 - Allergies Allergies/Adverse Reactions: Allergies Allergy/AdvReac Type Severity Reaction Status Date / Time No Known Drug Allergies Allergy Verified 12/07/20 17:46 - Social History Does the pt smoke?: No Smoking Status: Former smoker Does the pt drink ETOH?: No Does the pt have substance abuse?: No - Immunizations Immunizations are current?: No Immunizations: TDAP >10years/unknown PD ED PE NORMAL - Vitals Vital signs reviewed: Yes - General General: Alert and oriented X 3, Well developed/nourished - HEENT HEENT: PERRL, Moist mucous membranes - Neck Neck: Supple, no meningeal sign, Other (Paraspinal cervical spasm. Patient has his shoulders pulled up to nearly his ears. Limited range of motion of the neck secondary to pain.) - Cardiac Cardiac: RRR, Strong equal pulses - Respiratory Respiratory: No respiratory distress, Clear bilaterally - Abdomen Abdomen: Soft, Non tender, Non distended - Back Back: No spinal TTP - Derm Derm: Warm and dry - Extremities Extremities: No edema, No calf tenderness / cord - Neuro Neuro: Alert and oriented X 3, drama director 2-12 intact, No motor deficit, No sensory deficit, Normal speech Eye Opening: Spontaneous Motor: Obeys Commands Verbal: Oriented GCS Score: 15 - Psych Psych: Normal mood, Normal affect Results - Vitals Vitals: Vital Signs - 24 hr 12/07/20 12/07/20 17:46 21:44 Temperature 36.5 C Heart Rate 70 53 L Respiratory 16 18 Rate Blood Pressure 153/86 H 165/66 H O2 Saturation 99 98 Oxygen O2 Source Room air - Labs Labs: Laboratory Tests 12/07/20 12/07/20 12/07/20 18:25 18:25 18:25 WBC 6.3 RBC 4.42 L Hgb 14.0 Hct 38.5 L MCV 87.1 MCH 31.7 H MCHC 36.4 H RDW 11.6 L Plt Count 124 L MPV 9.8 Neut # (Auto) 4.3 Lymph # (Auto) 1.2 L [place] # (Auto) 0.7 Eos # (Auto) 0.1 Baso # (Auto) 0.0 Absolute Nucleated RBC 0.00 Nucleated RBC % 0.0 Sodium 131 L Potassium 4.0 Chloride 97 L Carbon Dioxide 25 Anion Gap 9.0 BUN 20 Creatinine 1.0 Estimated GFR (MDRD) 72 L Glucose 209 H Calcium 8.8 Phosphorus 3.0 Magnesium 2.0 Total Bilirubin 0.7 AST 36 ALT 32 Alkaline Phosphatase 51 Total Protein 6.9 Albumin 4.4 Globulin 2.5 Albumin/Globulin Ratio 1.8 Lipase 29 - Rads (name of study) CT chest angio Radiology: Prelim report reviewed, EMP read contemporaneously, See rad report (1. No acute aortic pathology. 2. Post aortic valvuloplasty and CABG. 3. No evidence of acute pulmonary parenchymal process. 4. No evidence of osseous abnormality. 5. Coronary and systemic atherosclerotic calcification. ) PD MEDICAL DECISION MAKING - ED course Complexity details: reviewed old records, reviewed results, re-evaluated patient, considered differential, d/w patient ED course: 80-year-old male with visible spasming of his paracervical muscles. Given a dose of Valium here as well as a dose of fentanyl. Gentle traction was applied to help with the spasming as well as gentle massage. Patient is feeling much better. Shoulders are down to nearly normal level. No evidence of aortic dissection or vertebral artery dissection. We will have him follow-up with his doctor for further care. Patient and family counseled regarding signs and symptoms for which I believe and urgent re-evaluation would be necessary. Patient with good understanding of and agreement to plan and is comfortable goi ng home at this time This document was made in part using voice recognition software. While efforts are made to proofread this document, sound alike and grammatical errors may occur. Departure - Departure Disposition: 01 Home, Self Care Clinical Impression: Muscle spasm Condition: Good Instructions: ED Spasm Neck No Injury Follow-Up: Demmler,Erick W, MD [Primary Care Provider] - Within 1 week Prescriptions: Oxycodone HCl/Acetaminophen [Percocet 5-325 mg Tablet] 1 - 2 each PO Q6H PRN #14 tablet PRN Reason: pain diazePAM [Valium] 5 - 10 mg PO TID PRN #15 tablet PRN Reason: Spasms Comments: Use the medication as prescribed. Do not mix with the other medication. The Valium and oxycodone together may cause drowsiness, I would start with the Valium, monitor if you give him both for any decreased breathing or decreased responsiveness. Return if he worsens. Continue to gently stretch the shoulders and neck to help relieve the spasm. Do not drink alcohol or drive while on narcotic pain medicine. Note that many narcotic pain relievers also contain tylenol/acetaminophen. Please ensure that your total dose of acetaminophen from all sources does not exceed 3 grams (3000mg) per day. You may constipated on this medication, take a stool softener such as "Colace" twice a day while you are on it. Also recommend a tyrf-oyv-frseffo laxative such as senna or MiraLAX any day that you do not have a bowel movement. If you received narcotic pain medication in the emergency department, do not drive or operate machinery for the next 24 hours. Discharge Date/Time: 12/07/20 21:44
[2020-12-07] MEDS ORDERED: MAGNESIUM SULFATE 2 GRAM 2 GM/50 ML BAG IV ONE (19:45)
[2020-12-07] MEDS ORDERED: fentaNYL 100 MCG/2 ML VIAL IVP STA (19:48)
[2020-12-07] MEDS ORDERED: IOVERSOL 320 100 ML VIAL IVP ONE (19:48)
--- NOTE | 2020-12-07 20:11 | CT Report ---
PROCEDURE: ANGIO CHEST W/WO INDICATIONS: chest, back and B arm pain CONTRAST: IV CONTRAST: Optiray 320 ml: 80 PO CONTRAST: *NO PO CONTRAST TECHNIQUE: After the administration of intravenous contrast, 2 mm thick sections acquired from the pulmonary api traci to the posterior costophrenic angles. 3-dimensional maximum intensity projection (MIP) coronal a nd sagittal reformats were then acquired through the thorax. For radiation dose reduction, the follow ing was used: automated exposure control, adjustment of mA and/or kV according to patient size. COMPARISON: None FINDINGS: Image quality: Excellent. Aorta: There has been aortic valve replacement. There is heavy little traverse coronary artery calcification a nd probable CABG change. The aorta is of normal caliber, demonstrates mild calcification at the arch and in the distal thoracic aorta, and no evidence of dissection ulceration, or periaortic hematoma. G reat vessels have a normal branching pattern. 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 The aorta is normal caliber as it extends into the upper a bdomen where there is moderate scattered calcific plaque at the branch artery origins. Pulmonary arteries: Pulmonary arteries are normal in size, and demonstrate no large central intralum inal filling defects to suggest pulmonary embolism. Lungs and pleura: Lungs are clear. No pleural effusions or pneumothorax. There is a small amount o f dependent mucus in the right mainstem bronchus. Central and peripheral airways are otherwise clear and patent. No bronchial wall thickening or bronchiectasis. Mediastinum: Heart size is normal, without pericardial effusion. No mediastinal or hilar adenopathy . Thoracic aorta is normal in caliber and enhancement. Esophagus is normal in caliber, without hiat al hernia. Bones and chest wall: Median sternotomy changes. No suspicious bony lesions. Ribs and thoracic spin e appear intact throughout. No axillary or supraclavicular adenopathy. The thyroid is normal. Abdomen: Visualized upper abdominal solid organs appear normal in the early arterial phase of enhanc ement. IMPRESSION: 1. No acute aortic pathology. 2. Post aortic valvuloplasty and CABG. 3. No evidence of acute pulmonary parenchymal process. 4. No evidence of osseous abnormality. 5. Coronary and systemic atherosclerotic calcification. Reviewed by: Bethany Bañuelos MD on 12/07/2020 8:10 PM PDT Approved by: Bethany Bañuelos MD on 12/07/2020 8:10 PM PDT Station ID: [id number]
[2020-12-07] MEDS ORDERED: oxyCODONE/ACET 5/325 Prepack 4 PO STA (21:20)
[2020-12-07 21:45] VITALS: BP 165/66
== END 2020-12-07 21:44 | disposition home or self-care (01) ==
LOC: ED 17:42
DX: M62.830 Muscle spasm of back (principal); Z95.1 Presence of aortocoronary bypass graft; I10 Essential (primary) hypertension; Z87.891 Personal history of nicotine dependence
CPT/HCPCS: 36415; 80053; 83690; 83735; 84100; 85025; 96365; 96375; 99284

== ENCOUNTER 2021-02-10 09:28 | Outpatient (CLI) | payer MEDICARE, OTHER ==
[2021-02-10 09:57] LABS: BASOPHILS % (AUTO) 0.5 %; EOSINOPHILS # (AUTO) 0.1 10^3/uL (0.0-0.7); EOSINOPHILS % (AUTO) 1.5 %; HCT - HEMATOCRIT 40.2 % (42.0-52.0); HGB - HEMOGLOBIN 14.7 g/dL (14.0-18.0); LYMPHOCYTES # (AUTO) 1.6 10^3/uL (1.5-3.5); MEAN CORPUSCULAR HGB CONC 36.6 g/dL (32.0-36.0); MEAN CORPUSCULAR VOLUME 87.6 fL (80.0-94.0); MEAN PLATELET VOLUME 9.2 fL (7.4-11.4); MONOCYTES # (AUTO) 0.6 10^3/uL (0.0-1.0); MONOCYTES % (AUTO) 10.3 %; NEUTROPHILS # (AUTO) 3.5 10^3/uL (1.5-6.6); NEUTROPHILS % (AUTO) 59.4 %; PLT - PLATELET COUNT 149 10^3/uL (130-450); RED BLOOD COUNT 4.59 10^6/uL (4.70-6.10); RED CELL DISTRIBUTION WIDTH 11.9 % (12.0-15.0); WHITE BLOOD COUNT 5.8 x10^3/uL (4.8-10.8)
[2021-02-10 10:10] LABS: CHOL/HDL RATIO 3.5 (<5.0); CHOLESTEROL 138 mg/dL; HDL CHOLESTEROL 39 mg/dL; LDL CHOLESTEROL,CALCULATED 74 mg/dL; LDL/HDL RATIO 1.9 (<3.6); TRIGLYCERIDES 124 mg/dL; VLDL CHOLESTEROL 25 mg/dL
[2021-02-10 10:22] LABS: THYROID STIMULATING HORMONE 5.07 uIU/mL (0.34-5.60)
[2021-02-10 13:28] LABS: ESTIMATED AVERAGE GLUCOSE 137 mg/dL (70-100); HEMOGLOBIN A1c% 6.4 % (4.27-6.07)
[2021-02-10 14:29] LABS: CREATININE,URINE 118.1 mg/dL; MICROALBUM/CREATININE RATIO,UR 7.6 ug/mg (<30.0); MICROALBUMIN,URINE 0.9 mg/dL (0-300.0)
== END 2021-02-10 09:29 | disposition home or self-care (01) ==
LOC: LAB 09:28
PROVIDERS: ATTEND Family Medicine
DX: E11.9 Type 2 diabetes mellitus without complications (principal); I10 Essential (primary) hypertension; Z95.2 Presence of prosthetic heart valve; E03.9 Hypothyroidism, unspecified; E78.2 Mixed hyperlipidemia; I25.10 Atherosclerotic heart disease of native coronary artery without angina pectoris
CPT/HCPCS: 36415; 80061; 82043; 82570; 83036; 83721; 84443; 85025

== ENCOUNTER 2021-09-03 10:07 | Outpatient (CLI) | payer MEDICARE, OTHER ==
[2021-09-03 10:38] LABS: CALCIUM 8.8 mg/dL (8.5-10.3); CREATININE 0.9 mg/dL (0.6-1.2)
[2021-09-03 10:50] LABS: THYROID STIMULATING HORMONE 6.38 uIU/mL (0.34-5.60)
[2021-09-03 11:27] LABS: FREE T4 (FREE THYROXINE) 0.86 ng/dL (0.58-1.64)
[2021-09-03 12:31] LABS: ESTIMATED AVERAGE GLUCOSE 143 mg/dL (70-100); HEMOGLOBIN A1c% 6.6 % (4.27-6.07)
== END 2021-09-03 10:08 | disposition home or self-care (01) ==
LOC: LAB 10:07
PROVIDERS: ATTEND Family Medicine
DX: I10 Essential (primary) hypertension (principal); R73.9 Hyperglycemia, unspecified; D69.6 Thrombocytopenia, unspecified; E78.2 Mixed hyperlipidemia
CPT/HCPCS: 36415; 80048; 83036; 84439; 84443

== ENCOUNTER 2022-08-03 11:57 | Outpatient (CLI) | payer MEDICARE, OTHER ==
[2022-08-03 12:25] LABS: BASOPHILS % (AUTO) 0.6 %; EOSINOPHILS # (AUTO) 0.1 10^3/uL (0.0-0.7); EOSINOPHILS % (AUTO) 1.1 %; HCT - HEMATOCRIT 43.3 % (42.0-52.0); HGB - HEMOGLOBIN 15.2 g/dL (14.0-18.0); LYMPHOCYTES # (AUTO) 2.4 10^3/uL (1.5-3.5); LYMPHOCYTES % (AUTO) 36.8 %; MEAN CORPUSCULAR HEMOGLOBIN 30.8 pg (27.0-31.0); MEAN CORPUSCULAR HGB CONC 35.1 g/dL (32.0-36.0); MEAN CORPUSCULAR VOLUME 87.7 fL (80.0-94.0); MEAN PLATELET VOLUME 9.6 fL (7.4-11.4); MONOCYTES # (AUTO) 0.6 10^3/uL (0.0-1.0); MONOCYTES % (AUTO) 9.2 %; NEUTROPHILS # (AUTO) 3.4 10^3/uL (1.5-6.6); NEUTROPHILS % (AUTO) 52.1 %; PLT - PLATELET COUNT 147 10^3/uL (130-450); RED BLOOD COUNT 4.94 10^6/uL (4.70-6.10); RED CELL DISTRIBUTION WIDTH 11.9 % (12.0-15.0); WHITE BLOOD COUNT 6.4 x10^3/uL (4.8-10.8)
[2022-08-03 12:47] LABS: ALBUMIN 4.9 g/dL (3.2-5.5); ALBUMIN/GLOBULIN RATIO 1.5 (1.0-2.2); ALKALINE PHOSPHATASE 66 IU/L (42-121); ALT ALANINE AMINOTRANSFERASE 33 IU/L (10-60); AST ASPARTATE AMINOTRANSFERASE 26 IU/L (10-42); BILIRUBIN,TOTAL 1.2 mg/dL (0.2-1.0); BUN - BLOOD UREA NITROGEN 20 mg/dL (6-20); CALCIUM 9.5 mg/dL (8.5-10.3); CARBON DIOXIDE - CO2 28 mmol/L (21-32); CHLORIDE 95 mmol/L (101-111); CHOL/HDL RATIO 4.1 (<5.0); CHOLESTEROL 165 mg/dL; GFR - MDRD 71 (>89); GLUCOSE 156 mg/dL (70-100); HDL CHOLESTEROL 40 mg/dL; LDL CHOLESTEROL,CALCULATED 92 mg/dL; LDL/HDL RATIO 2.3 (<3.6); POTASSIUM 4.2 mmol/L (3.5-5.0); SODIUM 132 mmol/L (135-145); TOTAL PROTEIN 8.2 g/dL (6.7-8.2); TRIGLYCERIDES 167 mg/dL; VLDL CHOLESTEROL 33 mg/dL
[2022-08-03 13:15] LABS: THYROID STIMULATING HORMONE 5.02 uIU/mL (0.34-5.60)
[2022-08-03 13:26] LABS: ESTIMATED AVERAGE GLUCOSE 157 mg/dL (70-100); HEMOGLOBIN A1c% 7.1 % (4.27-6.07)
== END 2022-08-03 11:58 | disposition home or self-care (01) ==
LOC: LAB 11:57
PROVIDERS: ATTEND Family Medicine
DX: I10 Essential (primary) hypertension (principal); M54.12 Radiculopathy, cervical region; I25.10 Atherosclerotic heart disease of native coronary artery without angina pectoris; E11.9 Type 2 diabetes mellitus without complications; E03.9 Hypothyroidism, unspecified; D69.6 Thrombocytopenia, unspecified; Z95.2 Presence of prosthetic heart valve
CPT/HCPCS: 36415; 80053; 80061; 83036; 83721; 84153; 84443; 85025

== ENCOUNTER 2023-07-20 13:14 | Outpatient (CLI) | payer MEDICARE, OTHER ==
[2023-07-20 14:01] LABS: CALCIUM 9.3 mg/dL (8.5-10.3); CREATININE 0.9 mg/dL (0.6-1.3); POTASSIUM 4.3 mmol/L (3.5-4.5)
[2023-07-20 21:01] LABS: ESTIMATED AVERAGE GLUCOSE 163 mg/dL (70-100); HEMOGLOBIN A1c% 7.3 % (4.27-6.07)
== END 2023-07-20 13:15 | disposition home or self-care (01) ==
LOC: LAB 13:14
PROVIDERS: ATTEND Family Medicine
DX: E11.9 Type 2 diabetes mellitus without complications (principal)
CPT/HCPCS: 36415; 80048; 83036